=== PATIENT | female | born 1940 | race Caucasian/White ===

== ENCOUNTER → 2024-09-27 10:31 | Outpatient (REF) | payer OTHER, SELFPAY | LOC: HWRAD 10:31 | PROVIDERS: ATTENDING PHYSICIAN Internal Medicine Rheumatology; FAMILY PHYSICIAN Family Medicine | DX: M05.79 Rheumatoid arthritis with rheumatoid factor of multiple sites without organ or systems involvement (principal) | CPT/HCPCS: 73130 ==

== ENCOUNTER → 2024-11-28 15:41 | Outpatient (REF) | payer OTHER, SELFPAY | LOC: HWRAD 15:41 | PROVIDERS: ATTENDING PHYSICIAN Family Medicine; REFERRING PHYSICIAN Internal Medicine Rheumatology | DX: M25.512 Pain in left shoulder (principal); M79.602 Pain in left arm; M25.522 Pain in left elbow; M79.632 Pain in left forearm | CPT/HCPCS: 73030; 73060; 73080; 73090 ==

== ENCOUNTER → 2025-02-10 11:59 | Outpatient (REF) | payer OTHER, SELFPAY | LOC: HWWDC 11:59 | PROVIDERS: ATTENDING PHYSICIAN Internal Medicine Geriatric Medicine | DX: Z12.31 Encounter for screening mammogram for malignant neoplasm of breast (principal) | CPT/HCPCS: 77063; 77067 ==